=== PATIENT | female | born 1975 | race Caucasian/White ===

== ENCOUNTER 2025-06-01 10:44 | Emergency (ER) | payer BC, SELFPAY ==
--- NOTE | 2025-06-01 10:54 | ED_ITS ---
HPI - General Adult General Chief complaint: Eye Problems Stated complaint: [facility] Time Seen by Provider: 06/01/25 10:54 Source: patient Mode of arrival: ambulatory Limitations: no limitations History of Present Illness HPI narrative: 49-year-old female patient presents to [facility] with complaints of bilateral eye itchiness and clear discharge that started yesterday. Patient also has had a runny nose and a little congestion. Denies fevers body aches or chills. Related Data Allergies Allergy/AdvReac Type Severity Reaction Status Date / Time No Known Allergies Allergy Verified 06/01/25 11:12 Review of Systems Review of Systems: CONSTITUTIONAL: Denies fever, chills, or sweats. EYES: Denies visual changes, redness, Positive clear discharge. positive itchiness ENT: positive rhinorrhea, congestion, denies sore throat, or otalgia. CARDIOVASCULAR: Denies chest pain, palpitations, or edema. RESPIRATORY: Denies cough or dyspnea. GASTROINTESTINAL: Denies abdominal pain, nausea, vomiting, or diarrhea. GENITOURINARY: Denies dysuria or hematuria. SKIN: Denies rash or itching. MUSCULOSKELETAL: Denies back pain, joint pain, or myalgia. NEUROLOGIC: Denies headache, numbness, or weakness. PSYCHIATRIC: Denies anxiety or depression. [facility] Past Medical History Medical History (Updated 06/01/25 @ 11:36 by Bonita Cisneros APRN) No significant past medical history Comments At the time of my signature I agree with nursing past medical history, surgical, social, and family history. There is no relevant family history pertinent to the presenting complaint. Exam Narrative: GENERAL: Well-appearing, well-nourished, and in no acute distress. HEAD: Normocephalic, atraumatic. EYES: PERRLA and EOMI. no significant erythema or active discharge noted to bilateral eyes they are slightly injected. mild inflammation to the conjunctiva ENT: Nares with erythema edema noted bilaterally, clear rhinorrhea no epistaxis. Mucous membranes moist. posterior pharynx with slight postnasal drip present. No tonsillar enlargement no exudates or lesions present. Bilateral TMs are clear no erythema or foreign bodies the canal. NECK: Supple. No lymphadenopathy CHEST: Clear to auscultation. No respiratory distress. HEART: Regular rate and rhythm. No murmur heard. Normal peripheral pulses. ABDOMEN: Soft, nontender, nondistended, normal active bowel sounds. EXTREMITIES: Normal range of motion. No edema. SKIN: Warm, dry, no rash. NEURO: No focal deficits. Alert and oriented x3. Course Course Level of Care: Express Care Visit Vital Signs Vital signs: Vital Signs Temperature 36.3 C L 06/01/25 11:04 Pulse Rate 65 06/01/25 11:04 Respiratory Rate 18 06/01/25 11:04 Blood Pressure 125/83 06/01/25 11:04 Pulse Oximetry 100 06/01/25 11:04 Oxygen Delivery Room Air 06/01/25 11:04 Temperature 36.3 C L 06/01/25 11:04 Pulse Rate 65 06/01/25 11:04 Respiratory Rate 18 06/01/25 11:04 Blood Pressure 125/83 06/01/25 11:04 Pulse Oximetry 100 06/01/25 11:04 Oxygen Delivery Room Air 06/01/25 11:04 Vital signs reviewed. MDM MDM Narrative Medical decision making narrative: Plan care for patient is discharge home with an antihistamine eyedrop and encourage daily antihistamine such as Zyrtec, Claritin Roberta. Discussed with her I do not believe this is a bacterial infection most likely just a viral conjunctivitis. Discussed with patient to drink plenty of fluid and make sure she has a humidifier by her bed when she sleeps at night. Patient verbalized understanding denies any other questions or concerns at this time. Differential Diagnosis Differential Diagnosis: Differential diagnosis: Conjunctivitis, foreign body, corneal ulcer, Keratitis, dendritic lesions, corneal abrasion, very orbital infection, orbital cellulitis, orbital pain, acute narrow angle glaucoma, detached retina, central retinal artery occlusion, complete hyphema, vitreous hemorrhage, optic neuritis, globe disruption Critical Care Time Critical Care Time Critical Care Time: No Discharge Plan Discharge Clinical Impression: Acute viral conjunctivitis Patient Disposition: Home Condition: Stable Instructions: Antibiotic Form, Conjunctivitis (ED) Additional Instructions: Conjunctivitis is inflammation or irritation to the eye conjunctiva. This causes the white part of the eye to appear red or pink, which is why they call it pink eye. It can be caused by viruses, bacteria, allergies, injuries, chemicals or other eye diseses. Most pink eye (viral and bacterial) is contagious. It might affect the otehr eye and spread to other people. Everyone in the household shoule wash their hands often and not touch their eyes. Don't share towels, clothes, sheets, or blankets. After touching a pink eye, always wash your hands. Don't go to school until the pink eye is back to normal. Home Care: Gently clean any mucus from the eye with a soft, wet cloth. Everyone in the house should frequently wash their hands often with soap and water or hand aviation safety equipment technician and avoid sharing towels. Do not use contact lenses unless the eye doctor has approved this. Call your doctor or go to the ER if your condition worsens or: Eye pain is not better or getting worse. Vision is blurry. Infection is not improved in 2 days. Eyelid or face becomes red or swollen. Fever occurs. Patient Language: Thai Prescriptions: New ketotifen fumarate [Zaditor] 0.025 % (0.035 %) drops 1 drop EACH EYE BID PRN (Reason: allergy symptoms) 5 Days Qty: 5 0RF Rx Instructions: administer at least 8 hours apart Follow-up/Referrals: PHYSICIAN,TELEVISION JOURNALIST [Primary Care Provider, Internal Medicine] Time of Disposition: 11:31
[2025-06-01 11:04] VITALS: BP 125/83; PULSE 65; RESP 18; TEMP 36.3; O2SAT 100
== END 2025-06-01 12:00 | disposition home or self-care (01) ==
PROVIDERS: Emergency Provider Nurse Practitioner Family
DX: H10.33 Unspecified acute conjunctivitis, bilateral (principal)
CPT/HCPCS: 99203; G0463